=== PATIENT | female | born 1990 | race Two or more races ===

== ENCOUNTER 2020-09-05 16:33 | Emergency (ER) | payer SELFPAY ==
[~2020-09-05] VITALS: Ht 167.6 cm; Wt 79.4 kg
[2020-09-05 16:33] VITALS: BP 118/65
--- NOTE | 2020-09-05 16:39 | NUR ---
ED Nurse Note: Patient from home and brought in by RA 30 due to allergic reaction after using a lotion. patient appears to have redness and rashes all over her body. Denies respiratory distress. Patient is AAO x4, follows commands with non labored breathing.
[2020-09-05] MEDS ORDERED: Solu-MEDROL 125mg Inj IVP ONE (16:45)
[2020-09-05] MEDS ORDERED: DiphenhydrAMINE 50mg/ml Inj IVP ONE (16:45)
--- NOTE | 2020-09-05 16:45 | Emergency Room Report ---
History of Present Illness General Chief Complaint: Allergic Reaction Source: EMS Present Illness HPI Disclaimer: Please note that this report is being documented using DRAGON technology. This can lead to erroneous entry secondary to incorrect interpretation by the dictating instrument. HPI: 30-year-old female arrives for evaluation of allergic reaction. Patient was applying a moisturizing cream to her body and 30 minutes after noted significant itching. This occurred approximately 30 minutes prior to arrival. She states she has used the cream before without similar reaction. Denies other changes in cosmetics, soaps, clothes or food. No prior history of allergic reaction. Does not take any medication and denies any medical history. Reports significant itchy over the arms legs and torso where the cream was applied. Notes some urticaria. Denies throat swelling, shortness of breath, vomiting, lightheadedness, palpitations, chest pain, wheezing, throat swelling or other symptoms. Did not take any medication prior to arrival. Stable vital signs on transfer per EMS. Speaking in full sentences. 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 EOMI. no lip swelling. No pharyngeal or laryngeal edema. Uvula midline. Speaking full sentences. No stridor. Tolerating secretions. Cardiovascular: RRR. S1 and S2 normal. No murmur appreciated Resp: Normal work of breathing. No cough, wheezing or crackles appreciated Abdomen: Abdomen is soft, nondistended. Nontender Skin: Excoriations and diffuse urticaria over the arms and legs and torso. No ulcerations, no skin breakdown. MSK: Normal tone and bulk. Moving all extremities. No obvious deformity. Neuro: Awake and alert. Mentating appropriately. Medical Decision Making Diagnostic Impression: Primary Impression: Allergic reaction ER Course 30-year-old female presenting for evaluation of an apparent allergic reaction to moisturizing cream. Patient arrives with urticaria but no evidence of acute anaphylactic reaction. No airway compromise, speaking full sentences, no laryngeal or pharyngeal edema. Treated with IV Benadryl and Solu-Medrol given oral famotidine. Symptoms improved. Will discharge with continued prednisone for 5 days as well as antihistamines. Encouraged her not to use this cream any further and to keep a close watch on her symptoms. Discussed signs and symptoms of anaphylaxis and when to return to the ER. She understands and agrees with the treatment plan will be discharged home. Last Vital Signs Date Time Temp Pulse Resp B/P (MAP) Pulse Ox O2 Delivery O2 Flow Rate FiO2 09/05/20 16:37 93 20 Room Air 09/05/20 16:33 98.0 118/65 98 Disposition: HOME, SELF-CARE Condition: Stable Scripts Prednisone* (PREDNISONE*) 20 Mg Tablet 40 MG ORAL DAILY for 5 Days, #10 TAB Prov: Tomi Benavides MD 09/05/20 Famotidine* (Pepcid 20mg tablet*) 20 Mg Tablet 20 MG ORAL DAILY for Gerd, #5 TAB 0 Refills Prov: Tomi Benavides MD 09/05/20 Diphenhydramine Hcl (BENADRYL ALLERGY) 25 Mg Tablet 25 MG PO QID for 3 Days, #20 TAB Prov: Tomi Benavides MD 09/05/20 Tomi Benavides MD Sep 05, 2020 16:45
[2020-09-05] MEDS ORDERED: PREDNISONE20 MG ORAL (16:48)
[2020-09-05] MEDS ORDERED: BENADRYL ALLERG25 M1 PO (16:48)
[2020-09-05] MEDS ORDERED: FAMOTIDINE20 MG ORAL (16:48)
[2020-09-05 18:02] VITALS: BP 126/78
--- NOTE | 2020-09-05 18:02 | NUR ---
ER DISCHARGE NOTE: Patient is cleared to be discharged per ERMD, pt is aox4, on room air, with stable vital signs. pt was given dc and prescription instructions, pt was able to verbalize understanding, pt id band and iv site removed without complications. pt is able to ambulate with steady gait. pt took all belongings.
== END 2020-09-05 18:02 | disposition home or self-care (01) ==
LOC: EDBD 16:33 → EMR 17:03
DX: T78.40XA Allergy, unspecified, initial encounter (principal); X58.XXXA Exposure to other specified factors, initial encounter; L29.9 Pruritus, unspecified
CPT/HCPCS: 96374; 96375; 99284; J1200; J2930